=== PATIENT | female | born 1990 | race Caucasian/White ===

== ENCOUNTER 2018-09-30 22:00 | Observation (INO) | payer OTHER ==
[2018-09-30 23:32] LABS: Appearance SLIGHTLY CLOUDY (CLEAR); Bacteria FEW /HPF (NEGATIVE); Bilirubin NEGATIVE (NEGATIVE); Blood NEGATIVE Ery/ul (0-5); Epithelial Cells MODERATE /HPF (FEW); Glucose NEGATIVE (NEGATIVE); Ketones MODERATE (NEGATIVE); Leukocyte Esterase SMALL (NEGATIVE); Mucus SLIGHT /HPF (NEGATIVE); Nitrite NEGATIVE (NEGATIVE); Protein,Urine Dip NEGATIVE (Negative); RBC 0-2 /HPF (0-2); Specific Gravity 1.019 (1.005-1.025); Urobilinogen 4 mg/dL (0-1)
[2018-09-30 23:34] LABS: ADD URINE CULTURE? YES (NO)
== END 2018-10-01 00:18 | disposition home or self-care (01) ==
LOC: MED SURG 22:00
CPT/HCPCS: 81001; 87086; G0378

== ENCOUNTER 2018-12-25 17:57 | Inpatient (IN) | payer OTHER ==
[2018-12-25 21:20] LABS: Appearance SLIGHTLY CLOUDY (CLEAR); Bacteria RARE /HPF (NEGATIVE); Bilirubin NEGATIVE (NEGATIVE); Blood NEGATIVE Ery/ul (0-5); Epithelial Cells RARE /HPF (FEW); Glucose NEGATIVE (NEGATIVE); Ketones SMALL (NEGATIVE); Leukocyte Esterase LARGE (NEGATIVE); Mucus SLIGHT /HPF (NEGATIVE); Nitrite NEGATIVE (NEGATIVE); Protein,Urine Dip NEGATIVE (Negative); Specific Gravity 1.011 (1.005-1.025); Urobilinogen NEGATIVE mg/dL (0-1)
[2018-12-25 21:22] LABS: Budding Yeast Few /HPF (NEGATIVE)
[2018-12-25 21:32] LABS: Amphetamine,Urine NEGATIVE (NEGATIVE); Barbiturate,Urine NEGATIVE (NEGATIVE); Benzodiazepine,Urine NEGATIVE (NEGATIVE); Cocaine,Urine NEGATIVE (NEGATIVE); Methadone,Urine NEGATIVE (NEGATIVE); Opiate,Urine NEGATIVE (NEGATIVE); PCP,Urine NEGATIVE (NEGATIVE); THC,Urine NEGATIVE (NEGATIVE)
[2018-12-25] MEDS ORDERED: Lactated Ringers 3,000 ML IV ONE (22:32)
[2018-12-25] MEDS ORDERED: XYLOCAINE 1% HCL 20 ML MDV IJ PRN (22:52)
[2018-12-25 23:02] LABS: Granulocyte Absolute (ANC) 7.06 (1.4-6.9); Hematocrit 36.8 % (35-47); Hemoglobin 12.4 gm/dl (12.0-16.0); Mean Cell Volume 99.7 fl (78-100); Mean Corpuscular Hemoglobin 33.6 pg (26-32); Mean Corpuscular Hgb Concent. 33.7 g/dl (32-36); Mean Platelet Volume 9.8 fl (6-9.5); Platelet Count 159 K/mm3 (150-450); Red Blood Count 3.69 M/mm3 (4.1-5.4); Red Cell Distribution Width 13.9 % (11.5-14.0); White Blood Count 9.4 K/mm3 (4.0-10.5)
[2018-12-25] MEDS ORDERED: Lactated Ringers 1,000 ML IV ONE (23:08)
[2018-12-25] MEDS: OB EPIDURAL NAROPIN/SUFENTANIL IN NACL EPIDURAL PRN (23:25)
[2018-12-25 23:58] LABS: ATYPICAL LYMPHS 2 %; BAND 2 % (0.0-2.0); Eosinophil 1 % (0.00-3.0); Lymphocytes 11 % (24-44); Monocyte 2 % (0.0-12.0); Neutrophils 82 % (36.0-66.0); Platelet Estimate NORMAL (NORMAL); Total Cells Counted 100
[2018-12-26] MEDS: Ephedrine Sulfate 50 MG/ML IV PRN ×3 (00:07→00:10)
[2018-12-26] MEDS: Lactated Ringers 1,000 ML IV SCH ×5 (00:07→16:30)
[2018-12-26] MEDS ORDERED: Lactated Ringers 1,000 ML IV ONE (04:01)
[2018-12-26] MEDS: OB EPIDURAL NAROPIN/SUFENTANIL IN NACL EPIDURAL PRN (09:45)
[2018-12-26] MEDS: PITOCIN 30 UNITS/ LR 500 ML 500 ML IV SCH ×2 (16:29→19:55)
[2018-12-26] MEDS ORDERED: TUCKS TP ONE (21:40)
[2018-12-26] MEDS ORDERED: Dermoplast Spray ONE (21:40)
[2018-12-27] MEDS ORDERED: CORTISONE 1% CREAM TP PRN (00:14)
[2018-12-27] MEDS ORDERED: Ambien 10 MG PO PRN (00:14)
[2018-12-27] MEDS ORDERED: NORCO 5/325 MG PO PRN (00:14)
[2018-12-27] MEDS ORDERED: Dulcolax 10 MG SUPP PR PRN (00:14)
[2018-12-27] MEDS ORDERED: LANSINOH 40 GM TOP PRN (00:14)
[2018-12-27] MEDS ORDERED: TUCKS TP PRN (00:14)
[2018-12-27] MEDS ORDERED: TYLENOL EXTRA STRENGTH 500 MG PO PRN (00:14)
[2018-12-27] MEDS ORDERED: Anucort-HC SUPPOSITORY PR PRN (00:14)
[2018-12-27] MEDS ORDERED: Mylicon 80MG PO PRN (00:14)
[2018-12-27] MEDS ORDERED: Dermoplast Spray TP PRN (00:14)
[2018-12-27] MEDS: Lactated Ringers 1,000 ML IV SCH (01:16)
[2018-12-27] MEDS ORDERED: Pepcid 20 MG VIAL IV SCH (05:30)
[2018-12-27] MEDS ORDERED: Reglan 10 MG/2 ML IV SCH (05:30)
[2018-12-27 05:44] LABS: BASOPHIL % 0.2 % (0.0-0.4); Basophil (Absolute #) 0.02 (0-0.4); Eosinophil % 0.8 % (0.00-5.0); Eosinophil (Absolute #) 0.07 (0-0.5); Granulocyte Absolute (ANC) 6.46 (1.4-6.9); Granulocytes % 75.9 % (36.0-66.0); Hematocrit 35.4 % (35-47); Hemoglobin 11.6 gm/dl (12.0-16.0); Lymphocyte (Absolute #) 1.44 (1.0-4.6); Lymphocytes % 16.9 % (24.0-44.0); Mean Cell Volume 101.7 fl (78-100); Mean Corpuscular Hemoglobin 33.3 pg (26-32); Mean Corpuscular Hgb Concent. 32.8 g/dl (32-36); Mean Platelet Volume 10.3 fl (6-9.5); Monocyte (Absolute #) 0.53 (0.0-1.3); Monocytes % 6.2 % (0.0-12.0); Platelet Count 165 K/mm3 (150-450); Red Blood Count 3.48 M/mm3 (4.1-5.4); Red Cell Distribution Width 14.2 % (11.5-14.0); White Blood Count 8.5 K/mm3 (4.0-10.5)
[2018-12-27 05:49] LABS: INR 1.07 (0.8-3.0); PROTIME 12.4 SECONDS (9.95-12.35)
[2018-12-27 05:51] LABS: PTT 26.5 SECONDS (25.3-37.0)
[2018-12-27] MEDS ORDERED: Sensorcaine 0.25% 10 ML ONE (06:16)
[2018-12-27] MEDS ORDERED: Lactated Ringers 1,000 ML IV ONE (06:16)
[2018-12-27] MEDS ORDERED: CEFAZOLIN 2 GM-D5W BAG** 2 GM/50 ML ML IV SCH (07:00)
[2018-12-27] MEDS ORDERED: TORAdol 30 mg Injection ONE (07:58)
[2018-12-27] MEDS ORDERED: Adacel Vial IM ONE (10:00)
--- NOTE | 2018-12-27 10:08 | OP ---
SURGERY DATE/TIME: 12/27/2018 0634 PREOPERATIVE DIAGNOSIS: Desires permanent sterilization. POSTOPERATIVE DIAGNOSIS: Desires permanent sterilization. PROCEDURES: bilateral tubal ligation. SURGEON: Luke Moreira M.D. ANESTHESIA: Epidural by Eris Bee CRNA. ESTIMATED BLOOD LOSS: Minimal. SPECIMENS: Bilateral fallopian tube segments. DESCRIPTION OF PROCEDURE: After informed, written consent was obtained the patient was taken to the OR. Prior to the procedure the risks of infection, bleeding and damage to surrounding structures were discussed thoroughly with the patient as well as the accepted failure rate of 1 and 300 of tubal ligation. She recognized these risks and elected to proceed. Of note, she had a tubal ligation consent signed in the office on 11/02/2018. She went to the operating room. She had her previously placed laboring epidural dosed by anesthesia, prepped and draped in usual sterile fashion. 0.25% Marcaine was used to infiltrate the area of the incision and approximately 8 ml used. Infraumbilical incision was then made by knife and carried down through the subcutaneous fat to the level of the fascia. The fascia was carefully entered and peritoneal cavity was opened. First, the right fallopian tube was identified, grasped with [place] and carried down to fimbrial edge to verify the tube. Next, cautery was used to make a window in the mesoappendix. Proximal and distal tube segments were ligated with 0 chromic tie. The interceding tube segment was dissected free with Metzenbaum scissors and the free edge of the tube was then cauterized with electrocautery. The same was repeated on the left side with no complications. Next, the fascia was closed with 0 Vicryl in running fashion with good closure, good hemostasis were achieved. The subcutaneous fat was irrigated with warm sterile saline and the space was closed with 2-0 Vicryl interrupted sutures. Skin layer was closed with 4-0 undyed Vicryl in a running subcuticular fashion. Steri-Strips and occlusive dressing were placed over the incision. The patient was transferred to the recovery room in good condition.
[2018-12-27] MEDS: FERREX 150 PO SCH (11:01)
[2018-12-27] MEDS: Colace 100 MG PO SCH ×3 (11:01→20:32)
[2018-12-27] MEDS: MOTRIN 400 MG PO PRN (11:01)
[2018-12-27 11:33] LABS: Appearance CLEAR (CLEAR); Bilirubin NEGATIVE (NEGATIVE); Blood LARGE Ery/ul (0-5); Glucose NEGATIVE (NEGATIVE); Ketones NEGATIVE (NEGATIVE); Leukocyte Esterase NEGATIVE (NEGATIVE); Mucus SLIGHT /HPF (NEGATIVE); Nitrite NEGATIVE (NEGATIVE); Protein,Urine Dip NEGATIVE (Negative); Specific Gravity 1.011 (1.005-1.025); Urobilinogen NEGATIVE mg/dL (0-1)
[2018-12-27 11:40] LABS: Bacteria FEW /HPF (NEGATIVE); Epithelial Cells FEW /HPF (FEW); RBC >101 /HPF (0-2)
[2018-12-28 03:19] VITALS: O2SAT 97
[2018-12-28] MEDS: MOTRIN 400 MG PO PRN (06:26)
--- NOTE | 2018-12-28 08:54 | PCM.DS ---
Discharge Summary Date of Admission: 12/25/18 17:57 Admitting Physician: IVETTE REYES Consults: Consults on Case 12/25/18 23:09 Notify Anesthesia Provider PRN Primary Care Provider: IVETTE REYES Allergies Allergies seafood Allergy (Unknown, Uncoded 12/26/18 00:41) [facility] Hospital Summary - Hospital Course Hospital Course: patient had uneventful 12/26, had pp tubal 12/27. doing well at this time, pain controlled ,mild lochia. breast and bottle feeding - Vitals & Intake/Output Vital Signs: Vital Signs Temperature 98.2 F 12/28/18 02:00 Pulse Rate 91 H 12/28/18 02:00 Respiratory Rate 16 12/28/18 02:00 Blood Pressure 105/64 12/28/18 02:00 O2 Sat by Pulse Oximetry 97 12/28/18 02:00 Intake & Output: Intake & Output 12/25/18 12/26/18 12/27/18 12/28/18 11:59 11:59 11:59 11:59 Intake Total 3580 6659 Output Total 720 900 Balance 2860 5759 Weight 90.718 kg 90.718 kg - Lab Result Diagrams: 12/27/18 05:32 Lab Results-Last 24 Hrs: Lab Results-Last 24 Hours 12/27/18 Range/Units 06:50 Urine Color YELLOW (YELLOW) Urine Appearance CLEAR (CLEAR) Urine pH 5.0 (5-6) Ur Specific [place] 1.011 (1.005-1.025) Urine Protein NEGATIVE (Negative) Urine Ketones NEGATIVE (NEGATIVE) Urine Blood LARGE (0-5) [place]/ul Urine Nitrite NEGATIVE (NEGATIVE) Urine Bilirubin NEGATIVE (NEGATIVE) Urine Urobilinogen NEGATIVE (0-1) mg/dL Ur Leukocyte Esterase NEGATIVE (NEGATIVE) Urine WBC (Auto) 3-5 (0-5) /HPF Urine RBC (Auto) >101 (0-2) /HPF U Epithel Cells (Auto) FEW (FEW) /HPF Urine Bacteria (Auto) FEW (NEGATIVE) /HPF Unidentified Crystals 2-5 (NEGATIVE) /HPF Urine Mucus (Auto) SLIGHT (NEGATIVE) /HPF Urine Glucose NEGATIVE (NEGATIVE) mg/dL Micro Results-Entire Visit: Microbiology 12/27/18 06:50 Urine Culture - Preliminary Urine, Catheterized NO GROWTH TO DATE 12/25/18 21:11 Urine Culture - Final Urine, Void <10K NORMAL SKIN FARSHAD PROBABLE SKIN CONTAMINANT Discharge Exam General Appearance: no apparent distress, alert Respiratory Exam: normal breath sounds, lungs clear, No respiratory distress Cardiovascular Exam: regular rate/rhythm, normal heart sounds Gastrointestinal/Abdomen Exam: soft, other (incision c/d/i) Extremity Exam: normal inspection, normal range of motion Final Diagnosis/Problem List - Final Discharge Diagnosis/Problem (1) Vaginal delivery Current Visit: Yes Status: Acute (2) Tubal ligation status Current Visit: Yes Status: Acute - Discharge Disposition: Home, Self-Care Condition: Stable Prescriptions: New Hydrocodone/APAP 5-325 Tab^^^ [[place] 5-325 Tablet^^^] 1 each PO Q6HPRN PRN # 28 tablet MDD 4 PRN Reason: Pain Continue Vits W-Ca,Fe,FA(<1Mg) [] 1 each PO DAILY Acetaminophen [Tylenol Extra Strength] 500 mg PO Q4-6HPRN PRN PRN Reason: Pain Follow up with: IVETTE REYES MD [Primary Care Provider] - 1 Week
[2018-12-28] MEDS: Colace 100 MG PO SCH (09:57)
[2018-12-28] MEDS: FERREX 150 PO SCH (09:57)
[2018-12-28 10:05] VITALS: BP 122/64; PULSE 89
[2018-12-28] MEDS ORDERED: Nesacaine 3% -Mpf*** 20ML SDV IJ ONE (12:06)
[2018-12-28] MEDS ORDERED: Xylocaine-Mpf 2% 5 Ml Vial IJ ONE (12:06)
== END 2018-12-28 12:25 | disposition home or self-care (01) | DRG 798 ==
LOC: OB 17:57 → UNDOADMOB 17:57 → INTOOBSV 17:57 → OBSVTOIN 17:57 → MED SURG 12-27 20:30
PROVIDERS: ADMIT Family Medicine; ATTEND Family Medicine
PROC: 10E0XZZ Delivery of Products of Conception, External Approach (ICD-10-PCS; principal; 2018-12-26)
PROC: 0U570ZZ Destruction of Bilateral Fallopian Tubes, Open Approach (ICD-10-PCS; 2018-12-27)
DX: O80 Encounter for full-term uncomplicated delivery (principal); Z37.0 Single live birth; Z3A.37 37 weeks gestation of pregnancy; Z30.2 Encounter for sterilization
CPT/HCPCS: 36415; 80307; 81001; 82962; 83986; 85025; 85610; 85730; 87086; 88302; 90471; 90715; 94799; G0378; J0690; J1885; J2590; J2795; L0625; A9270-GY